=== PATIENT | male | born 1990 | race Hispanic/Latino ===

== ENCOUNTER 2018-09-28 10:15 | Outpatient (CLI) | payer OTHER ==
--- NOTE | 2018-09-28 18:00 | ULT ---
BILATERAL RENAL ULTRASOUND: 09/28/2018 HISTORY/TECHNIQUE: Ultrasonography of the urinary tract is performed for evaluation of proteinuria. FINDINGS: The right kidney measures 10.7 x 5.2 x 4.0 cm and the left measures 11.1 x 5.6 x 3.8 cm. No mass or hydronephrosis is seen in either. The cortex is ample in thickness for each, and the cortical echoge nicity is normal. The urinary bladder is unremarkable in appearance. Bilateral ureteral jets are no jeanine. The hepatic tissue is somewhat irregular, and there seems to be a band of increased echoes throughout it. This may be nothing more than some focal areas of fatty infiltration, but the finding needs fur ther workup. Ideally, I would consider an abdominal CT scan with contrast if possible. IMPRESSION: 1. No urinary tract abnormality seen. 2. Abnormal appearing liver. Further workup recommended. CODE T POS: HOME
== END 2018-09-28 10:16 | disposition home or self-care (01) ==
LOC: BURULT 10:15
PROVIDERS: ATTEND Nurse Practitioner Family
DX: R80.1 Persistent proteinuria, unspecified (principal)
CPT/HCPCS: 76770